=== PATIENT | male | born 1990 | race Hispanic/Latino ===

== ENCOUNTER 2017-03-19 16:44 | Inpatient (IN) | payer BC ==
[2017-03-19 16:50] VITALS: BMI 32.5
[2017-03-19] MEDS ORDERED: Sodium Chloride 0.9% 1,000 ML IV STA ×2 (16:52→18:57)
[2017-03-19 17:07] LABS: ADD MANUAL DIFF? NO
--- NOTE | 2017-03-19 17:08 | ED PDOC ---
Arrival/HPI - General Chief Complaint: Abdominal Pain Time Seen by Provider: 03/19/17 16:50 - History of Present Illness Narrative History of Present Illness (Text): 26 y/o M c no PMHx p/w diffuse muscle cramping of the entire body since yesterday. 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 He reports nausea and vomiting as well. Of note, the temperature outside has been 90 degrees the last 2 days. He denies injury, change in urination, fever, confusion. Past Medical History - Psychiatric Hx Substance Use: No Family/Social History Family/Social History: No Known Family HX Smoking Status: Never Smoked Hx Alcohol Use: Yes Hx Substance Use: No Allergies/Home Meds Allergies/Adverse Reactions: Allergies No Known Allergies Allergy (Verified 03/19/17 16:49) Home Medications: Home Meds Medication Instructions Recorded Confirmed No Known Home Med 03/19/17 03/19/17 Review of Systems - Physician Review All systems were reviewed & negative as marked: Yes - Review of Systems Constitutional: absent: Fevers Respiratory: absent: SOB Gastrointestinal: Vomiting Physical Exam - Physical Exam Narrative Physical Exam (Text): Constitutional: No acute distress. Head: Normocephalic. Atraumatic. Eyes: PERRL. ENT: Dry mucous membranes. Neck: Supple. Cardiovascular: Regular rate. Chest: No tenderness. Respiratory: Clear to auscultation bilaterally. GI: Soft. Nontender. Nondistended. Back: No CVA tenderness. Musculoskeletal: No tenderness or swelling of extremities. Skin: No rash. Diaphoretic. Neurologic: Alert, no focal deficit. Vital Signs Temp Pulse Resp BP Pulse Ox 03/19/17 21:10 97.5 F L 93 H 20 133/80 98 03/19/17 18:30 95 H 18 125/72 99 03/19/17 16:50 97.5 F L 102 H 20 127/59 L 98 Medical Decision Making ED Course and Treatment: Triage temperature less than 98 degrees. Will begin IVF hydration, check LFTs, renal function, UA, CXR. 03/19/17 17:12 EKG Sinus tachycardia 117, no ST elevations, normal axis. BP noted to by normotensive with wide pulse pressure. CXR no consolidation. Labs shows multiple significant abnormalities including CK 800 and worsening renal function and acidosis. Requires IVF, bicarb, close monitoring until resolution. Dr. Buenrostro accepts for admission. - Lab Interpretations Lab Results: 03/19/17 16:58 03/19/17 16:58 Lab Results 03/19/17 18:42: pO2 210 H, VBG pH 7.37, VBG pCO2 40.0, VBG HCO3 23.1, VBG Total CO2 24.3, VBG O2 Sat (Calc) 100.4 H, VBG Base Excess -2.0 L, VBG Potassium 3.9, Glucose 132 H, Lactate 1.1, FiO2 21.0, Sodium 135.0, Chloride 105.0, Venous Blood Potassium 3.9 03/19/17 18:15: Urine Color Yellow, Urine Appearance Sl cloudy, Urine pH 5.5, Ur Specific [place] >= 1.030, Urine Protein 100 H, Urine Glucose (UA) Negative, Urine Ketones Trace H, Urine Blood Trace-intact H, Urine Nitrate Negative, Urine Bilirubin Negative, Urine Urobilinogen 0.2, Ur Leukocyte Esterase Negative , Urine RBC 2 - 5, Urine WBC 5 - 10, Ur Epithelial Cells 1 - 3, Urine Bacteria Mod 03/19/17 16:58: Sodium 139, Potassium 4.1, Chloride 93 L, Carbon Dioxide 20 L, Anion Gap 30 H, BUN 40 H, Creatinine 2.0 H, Est GFR ( Amer) 50, Est GFR ( Non-Af Amer) 41, Random Glucose 129 H, Calcium 11.5 H, Phosphorus 6.9 H, Magnesium 2.5 H, Total Bilirubin 2.6 H, AST 71 H, ALT 59 H, Alkaline Phosphatase 89, Total Creatine Kinase 819 H, CK-MB (CK-2) 5.3 H, CK-MB (CK-2) % 0.6 L, Total Protein 11.2 H, Albumin 6.0 H, Globulin 5.2, Albumin/Globulin Ratio 0.0 L, Lipase 114 03/19/17 16:58: WBC 17.8 H, RBC 6.26 H, Hgb 18.9 H*, Hct 51.0, MCV 81.5, MCH 30.2, MCHC 37.1 H, RDW 12.0, Plt Count 351, MPV 11.0, Gran % 72.6 H, Lymph % ( Auto) 19.0 L, Holmes % (Auto) 7.5 H, Eos % (Auto) 0.6 L, Baso % (Auto) 0.3, Gran # 12.96 H, Lymph # 3.4, Holmes # 1.3 H, Eos # 0.1, Baso # 0.06 - RAD Interpretation Radiology Orders: 03/19/17 16:59 CHEST PORTABLE [RAD] Stat - Medication Orders Current Medication Orders: Calcium Acetate (Phoslo) 667 mg PO WM [facility] Last Admin: 03/20/17 09:10 Dose: 667 mg Heparin Sodium (Porcine) (Heparin) 5,000 units SC Q8H [facility]MAN[facility] PRN Reason: Protocol Last Admin: 03/20/17 06:20 Dose: 5,000 units Sodium Bicarbonate 50 meq/ (Sodium Chloride) 1,050 mls @ 150 mls/hr IV .Q7H [facility] Stop: 03/22/17 20:46 Last Admin: 03/20/17 06:20 Dose: 150 mls/hr Cefepime HCl 0.5 gm/ Sodium (Chloride) 100 mls @ 100 mls/hr IVPB Q12H [facility] PRN Reason: Protocol Last Admin: 03/20/17 10:00 Dose: 100 mls/hr Ondansetron HCl (Zofran Inj) 4 mg IVP Q4H PRN PRN Reason: Nausea/Vomiting Pantoprazole Sodium (Protonix Ec Tab) 40 mg PO 0630 [facility] Last Admin: 03/20/17 06:20 Dose: 40 mg Discontinued Medications Sodium Chloride (Sodium Chloride 0.9%) 1,000 mls @ 999 mls/hr IV .Q1H1M STA Stop: 03/19/17 17:52 Last Admin: 03/19/17 17:06 Dose: 999 mls/hr Sodium Chloride (Sodium Chloride 0.9%) 1,000 mls @ 999 mls/hr IV .Q1H1M STA Stop: 03/19/17 19:57 Last Admin: 03/19/17 19:00 Dose: 999 mls/hr Sodium Bicarbonate 50 meq/ (Sodium Chloride) 1,050 mls @ 150 mls/hr IV .Q7H [facility] Magnesium Citrate (Citrate Of Mag) 300 ml PO ONCE ONE Stop: 03/20/17 09:05 Last Admin: 03/20/17 10:03 Dose: 300 ml Ondansetron HCl (Zofran Inj) 8 mg IVP STAT ST[facility] Stop: 03/19/17 16:53 Last Admin: 03/19/17 17:06 Dose: 8 mg Pantoprazole Sodium (Protonix Ec Tab) 40 mg PO ONCE ONE Stop: 03/19/17 20:00 Last Admin: 03/19/17 23:25 Dose: 40 mg Disposition/Present on Arrival - Present on Arrival Any Indicators Present on Arrival: No History of DVT/PE: No History of Uncontrolled Diabetes: No Urinary Catheter: No History of Decub. Ulcer: No History Surgical Site Infection Following: None - Disposition Have Diagnosis and Disposition been Completed?: Yes Diagnosis: Dehydration Disposition: HOSPITALIZED Disposition Time: 18:55 Patient Plan: Admission Condition: GUARDED
[2017-03-19 17:20] LABS: BASO # 0.06 K/mm3 (0.0-2.0); BASO % 0.3 % (0.0-3.0); EOS # 0.1 (0.0-0.7); EOS % 0.6 % (1.5-5.0); GRAN # 12.96 (1.4-6.5); GRAN % 72.6 % (50.0-68.0); LYMPH # 3.4 (1.2-3.4); MEAN CELL VOLUME 81.5 fL (80.0-105.0); MEAN CORPUSCULAR HEMOGLOBIN 30.2 pg (25.0-35.0); MEAN CORPUSCULAR HGB CONC 37.1 g/dl (31.0-37.0); MONO # 1.3 (0.1-0.6); MONO % 7.5 % (1.0-6.0); PLATELET COUNT 351 10^3/uL (120.0-450.0); WHITE BLOOD COUNT 17.8 10^3/ul (4.5-11.0)
[2017-03-19 17:34] LABS: BILIRUBIN,TOTAL 2.6 mg/dL (0.2-1.3); CALCIUM 11.5 mg/dL (8.4-10.5); MAGNESIUM 2.5 mg/dL (1.7-2.2); PHOSPHOROUS 6.9 mg/dL (2.5-4.5); POTASSIUM 4.1 mmol/L (3.6-5.0)
[2017-03-19 18:38] LABS: PH,URINE 5.5 (4.7-8.0); URINE BILIRUBIN NEGATIVE (NEGATIVE); URINE BLOOD TRACE-INTACT (NEGATIVE); URINE GLUCOSE (UA) NEGATIVE (NEGATIVE); URINE KETONE TRACE mg/dL (NEGATIVE); URINE LEUKOCYTE ESTERASE NEGATIVE Leu/uL (NEGATIVE); URINE PROTEIN 100 mg/dL (<30 mg/dL); URINE UROBILINOGEN 0.2 E.U./dL (<1 E.U./dL)
[2017-03-19 18:44] LABS: URINE APPEARANCE SL CLOUDY (CLEAR); URINE COLOR YELLOW (YELLOW)
[2017-03-19 18:51] LABS: VENOUS BLOOD PH 7.37 (7.32-7.43)
[2017-03-19 18:53] LABS: TOTAL PROTEIN 11.2 g/dL (5.8-8.3)
[2017-03-19] MEDS ORDERED: Sodium Bicarbonate (8.4%) 50 Meq Syringe IVP ONE (18:57)
[2017-03-19 18:59] LABS: URINE BACTERIA MOD (NEG)
[2017-03-19] MEDS ORDERED: Pantoprazole 20 mg EC Tab PO ONE (19:59)
--- NOTE | 2017-03-19 21:50 | CARD ---
APPROVED REPORT EKG Measurement Heart [id number] <Conclusion> Sinus tachycardia Right atrial enlargement Minimal voltage criteria for LVH, may be normal variant Borderline ECG
[2017-03-19 23:11] LABS: MAGNESIUM 2.3 mg/dL (1.7-2.2); URIC ACID 8.9 mg/dL (3.5-8.5)
[2017-03-19 23:14] LABS: INR 1.06 (0.93-1.08); PARTIAL THROMBOPLASTIN TIME 26.4 Seconds (23.7-30.8)
[2017-03-19] MEDS: Cefepime 0.5 GM in Sodium Chloride 0.9% 100 ML IVPB SCH (23:24)
[2017-03-19 23:27] LABS: TROPONIN I < 0.01 ng/mL
[2017-03-19 23:29] LABS: FREE T4 1.08 ng/dL (0.78-2.19); T4 8.9 ug/dL (5.5-11.0)
[2017-03-19 23:42] LABS: THYROID STIMULATING HORMONE 1.1 mIU/mL (0.46-4.68)
[2017-03-20] MEDS: Pantoprazole 40 mg EC Tab PO SCH (06:20)
[2017-03-20 07:52] LABS: ADD MANUAL DIFF? NO
[2017-03-20 07:58] LABS: BASO # 0.02 K/mm3 (0.0-2.0); BASO % 0.2 % (0.0-3.0); EOS # 0.1 (0.0-0.7); EOS % 1.5 % (1.5-5.0); GRAN # 5.77 (1.4-6.5); GRAN % 67.4 % (50.0-68.0); HEMATOCRIT 40.5 % (42.0-52.0); MEAN CELL VOLUME 83.5 fL (80.0-105.0); MEAN CORPUSCULAR HEMOGLOBIN 28.9 pg (25.0-35.0); MEAN CORPUSCULAR HGB CONC 34.6 g/dl (31.0-37.0); MEAN PLATELET VOLUME 10.7 fl (7.0-11.0); MONO # 0.7 (0.1-0.6); MONO % 7.9 % (1.0-6.0); PLATELET COUNT 249 10^3/uL (120.0-450.0); RED CELL DISTRIBUTION WIDTH 12.5 % (11.5-14.5); WHITE BLOOD COUNT 8.6 10^3/ul (4.5-11.0)
[2017-03-20 08:29] LABS: ALB/GLOB RATIO 1.4 (1.1-1.8); ALKALINE PHOSPHATASE 54 U/L (38-133); ALT/SGPT 51 U/L (7-56); AST/SGOT 52 U/L (15-59); BILIRUBIN,DIRECT 0.5 mg/dL (0.0-0.4); BILIRUBIN,TOTAL 2.4 mg/dL (0.2-1.3); BLOOD UREA NITROGEN 28 mg/dL (7-21); CARBON DIOXIDE 28 mmol/L (21-33); CHLORIDE 101 mmol/L (98-107); GFR AFRICAN-AMERICAN > 60; GLUCOSE,RANDOM 96 mg/dL (70-110); MAGNESIUM 2.3 mg/dL (1.7-2.2); PHOSPHOROUS 2.9 mg/dL (2.5-4.5); POTASSIUM 4.5 mmol/L (3.6-5.0); SODIUM 138 mmol/L (132-148); TOTAL PROTEIN 7.4 g/dL (5.8-8.3)
[2017-03-20 08:30] LABS: TROPONIN I < 0.01 ng/mL
[2017-03-20] MEDS ORDERED: Magnesium Citrate Oral SOL (300 ml) PO ONE (09:04)
[2017-03-20] MEDS: Cefepime 0.5 GM in Sodium Chloride 0.9% 100 ML IVPB SCH ×2 (10:00→21:34)
--- NOTE | 2017-03-20 10:04 | CT ---
PROCEDURE: CT Abdomen and Pelvis without intravenous contrast HISTORY: rhabdo COMPARISON: None. TECHNIQUE: Without contrast.. Contrast Dose: 0 Radiation dose: Total exam DLP = 906.98 mGy-cm. This CT exam was performed using one or more of the following dose reduction techniques: Automated exposure control, adjustment of the mA and/or kV according to patient size, and/or use of iterative reconstruction technique. FINDINGS: LOWER THORAX: Unremarkable. LIVER: Unremarkable. No gross lesion or ductal dilatation. GALLBLADDER AND BILE DUCTS: Unremarkable. PANCREAS: Unremarkable. No gross lesion or ductal dilatation. SPLEEN: Unremarkable. ADRENALS: Unremarkable. No mass. KIDNEYS AND URETERS: Unremarkable. No hydronephrosis. No solid mass. VASCULATURE: Unremarkable. No aortic aneurysm. BOWEL: Unremarkable. No obstruction. No gross mural thickening. APPENDIX: Unremarkable. Normal appendix. PERITONEUM: Unremarkable. No free fluid. No free air. LYMPH NODES: Unremarkable. No enlarged lymph nodes. BLADDER: Unremarkable. REPRODUCTIVE: Normal prostate BONES: No acute fracture. OTHER FINDINGS: None. IMPRESSION: Unremarkable non contrast enhanced CT of the abdomen and pelvis. No acute abnormality. Preliminary interpretation of this examination was reported by [facility] at 9:50 p.m. on 03/19/2017. There is concurrence of this report with the preliminary interpretation.
--- NOTE | 2017-03-20 12:39 | RAD ---
HISTORY: diffuse cramping COMPARISON: No prior. FINDINGS: LUNGS: No active pulmonary disease. PLEURA: No significant pleural effusion identified, no pneumothorax apparent. CARDIOVASCULAR: Normal. OSSEOUS STRUCTURES: No significant abnormalities. VISUALIZED UPPER ABDOMEN: Normal. OTHER FINDINGS: None. IMPRESSION: No active disease.
--- NOTE | 2017-03-20 13:17 | US ---
HISTORY: transaminitis COMPARISON: None. TECHNIQUE: Sonographic evaluation of the abdomen. FINDINGS: LIVER: Measures 16.2 cm. Mild diffusely increased echogenicity of the liver parenchyma. Consistent with fatty infiltration. No mass. No biliary ductal dilatation. Smooth contour. GALLBLADDER: Unremarkable. No gallstones. COMMON BILE DUCT: Measures 4 mm. No stones. No dilatation. PANCREAS: Unremarkable as visualized. No mass. No ductal dilatation. RIGHT KIDNEY: Measures 10.6cm. Normal echogenicity. No calculus, mass, or hydronephrosis. LEFT KIDNEY: Measures 10.9cm. Normal echogenicity. No calculus, mass, or hydronephrosis. SPLEEN: Normal in size and contour. No mass. AORTA: No aneurysmal dilatation. IVC: Unremarkable. OTHER FINDINGS: None. IMPRESSION: Mild fatty infiltration of the liver. Otherwise unremarkable examination.
--- NOTE | 2017-03-20 13:51 | CP.PCM.CON ---
History of Present Illness - History of Present Illness History of Present Illness: Initial Nephrology Consultation: Assessment: Acute Kidney Injury likely due to severe dehydration: RESOLVED with IVF hypercalcemia, hyperphosphatemia, hypermagnesemia : RESOLVED mild rhabdomyolysis Plan renal function normal with hydration continue with fluid supplementation as normal saline while he is here. no further renal work up indicated pt advised to stop smoking advised to stay hydrated well d/c calc acetate. d/c bicarb drmat Thanks for allowing me to participate in care of your patient. 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 found to be dehydrated and Have J CARLOS. feels better now Denies chest pain, palpitation, shortness of breath, leg swelling Denies blood or bubbles in urine Denies OTC/herbal meds. took few Alleve No recent iodinated contrast exposure. No obvious episodes of low BP. ROS: Constitutional Symptoms: Denies fever. No chills. No Recent Weight Changes Eyes: denies change in vision, denies watery eyes, denies double vision Ears/Nose/Mouth/Throat: Denies Abnormal Taste. No Bad breath or Bad Taste. Cardiovascular: No chest pain. There is no shortness of breath. No palpitations. Pulmonary: No shortness of breath or cough. Gastrointestinal: denies abdominal pain No nausea. had vomiting. Denies change in bowel habits. Denies Bleeding Genitourinary: No Change in force of strain when urinating. No increase in urinary frequency. No pain while urinating. Denies blood in urine. Neurological: Denies headaches. No dizziness. Denies loss of balance. Denies weakness, denies tingling/numbness Dermatological: No Rash or Bruising or ulcers. Psychiatric: Denies Anxiety. No depression. Denies hallucinations. Rheumatological: No joint pain. Denies Joint swelling. had muscle cramps Endocrine: Denies over tiredness. Denies Fatigue and Heat/Cold Intolerance. Physical Examination: General Appearance: Comfortable, in no acute respiratory distress, co-operative . Vitals reviewed and noted as below Head; Atraumatic, normocephalic ENT: no ulcers no thrush. Tongue is midline. Oropharynx: no rash or ulcers. EYES: Pupils are equal, round and reactive to light accommodation. Eye muscles and extraocular movement intact. Sclera is anicteric. Neck; supple no lymphadenopathy, no thyromegaly or bruit Lungs: Normal respiratory rate/effort. Breath sounds bilateral equal and clear Heart: Normal rate. s1s2 normal. No rub or gallop. Extremities: no edema. No varicose veins Neurological: Patient is alert, awake and oriented to person, place and time. No focal deficit. Strength bilateral appropriate and equal Skin: Warm and dry. Normal turgor. No rash. Palpitation: Normal elasticity for age Abdomen: Abdomen is soft. Bowel sounds +. There is no abdominal tenderness, no guarding/rigidity or organomegaly Psych: normal insight and normal affect/mood MSK: no joint tenderness or swelling. Digits and nails normal, no deformity : kidney or bladder not palpable Labs/imaging reviewed. Past medical history, past surgical history, family history, social history, allergy reviewed and noted as below imaging normal kidneys Past Patient History - Past Social History Smoking Status: Never Smoked - CARDIAC Hx Cardiac Disorders: No - PULMONARY Hx Respiratory Disorders: No - NEUROLOGICAL Hx Neurological Disorder: No - HEENT Hx HEENT Problems: No - RENAL Hx Chronic Kidney Disease: No - ENDOCRINE/METABOLIC Hx Endocrine Disorders: No - HEMATOLOGICAL/ONCOLOGICAL Hx Blood Disorders: No - INTEGUMENTARY Hx Dermatological Problems: No - MUSCULOSKELETAL/RHEUMATOLOGICAL Hx Falls: No - GASTROINTESTINAL Hx Gastrointestinal Disorders: No - GENITOURINARY/GYNECOLOGICAL Hx Genitourinary Disorders: No - PSYCHIATRIC Hx Substance Use: No - SURGICAL HISTORY Hx Surgeries: No Meds Allergies/Adverse Reactions: Allergies Allergy/AdvReac Type Severity Reaction Status Date / Time No Known Allergies Allergy Verified 03/19/17 16:49 - Medications Medications: Current Medications Calcium Acetate (Phoslo) 667 mg PO WM [facility] Last Admin: 03/20/17 12:16 Dose: 667 mg Heparin Sodium (Porcine) (Heparin) 5,000 units SC Q8H [facility] PRN Reason: Protocol Last Admin: 03/20/17 12:16 Dose: 5,000 units Sodium Bicarbonate 50 meq/ (Sodium Chloride) 1,050 mls @ 150 mls/hr IV .Q7H [facility] Stop: 03/22/17 20:46 Last Admin: 03/20/17 06:20 Dose: 150 mls/hr Cefepime HCl 0.5 gm/ Sodium (Chloride) 100 mls @ 100 mls/hr IVPB Q12H [facility] PRN Reason: Protocol Last Admin: 03/20/17 10:00 Dose: 100 mls/hr Ondansetron HCl (Zofran Inj) 4 mg IVP Q4H PRN PRN Reason: Nausea/Vomiting Pantoprazole Sodium (Protonix Ec Tab) 40 mg PO 0630 [facility] Last Admin: 03/20/17 06:20 Dose: 40 mg Results - Vital Signs Recent Vital Signs: Last Vital Signs Temp 98.7 F 03/20/17 05:58 Pulse 84 03/20/17 10:00 Resp 20 03/20/17 05:58 BP 129/67 03/20/17 05:58 Pulse Ox 98 03/20/17 05:58 - Labs Result Diagrams: 03/20/17 07:49 03/20/17 07:49 Labs: Laboratory Results - last 24 hr 03/19/17 03/19/17 03/19/17 19:35 22:30 22:30 WBC RBC Hgb Hct MCV MCH MCHC RDW Plt Count MPV Gran % Lymph % (Auto) [place] % (Auto) Eos % (Auto) Baso % (Auto) Gran # Lymph # [place] # Eos # Baso # PT 11.4 INR 1.06 APTT 26.4 Sodium Potassium Chloride Carbon Dioxide Anion Gap BUN Creatinine Est GFR ( Amer) Est GFR (Non-Af Amer) Random Glucose Lactic Acid Uric Acid 8.9 H Calcium Phosphorus Magnesium 2.3 H Total Bilirubin Direct Bilirubin AST ALT Alkaline Phosphatase Total Creatine Kinase CK-MB (CK-2) CK-MB (CK-2) % Troponin I < 0.01 Total Protein Albumin Globulin Albumin/Globulin Ratio Free T4 Thyroxine (T4) TSH 3rd Generation Urine Opiates Screen Negative Urine Methadone Screen Negative Ur Barbiturates Screen Negative Ur Phencyclidine Scrn Negative Ur Amphetamines Screen Negative U Benzodiazepines Scrn Negative U Oth Cocaine Metabols Negative U Cannabinoids Screen Positive H 03/19/17 03/19/17 03/20/17 22:30 22:30 07:49 WBC 8.6 D RBC 4.85 Hgb 14.0 Hct 40.5 L MCV 83.5 MCH 28.9 MCHC 34.6 RDW 12.5 Plt Count 249 MPV 10.7 Gran % 67.4 Lymph % (Auto) 23.0 [place] % (Auto) 7.9 H Eos % (Auto) 1.5 Baso % (Auto) 0.2 Gran # 5.77 Lymph # 2.0 [place] # 0.7 H Eos # 0.1 Baso # 0.02 PT INR APTT Sodium Potassium Chloride Carbon Dioxide Anion Gap BUN Creatinine Est GFR ( Amer) Est GFR (Non-Af Amer) Random Glucose Lactic Acid 1.1 Uric Acid Calcium Phosphorus Magnesium Total Bilirubin Direct Bilirubin AST ALT Alkaline Phosphatase Total Creatine Kinase CK-MB (CK-2) CK-MB (CK-2) % Troponin I Total Protein Albumin Globulin Albumin/Globulin Ratio Free T4 1.08 Thyroxine (T4) 8.9 TSH 3rd Generation 1.10 Urine Opiates Screen Urine Methadone Screen Ur Barbiturates Screen Ur Phencyclidine Scrn Ur Amphetamines Screen U Benzodiazepines Scrn U Oth Cocaine Metabols U Cannabinoids Screen 03/20/17 07:49 WBC RBC Hgb Hct MCV MCH MCHC RDW Plt Count MPV Gran % Lymph % (Auto) [place] % (Auto) Eos % (Auto) Baso % (Auto) Gran # Lymph # [place] # Eos # Baso # PT INR APTT Sodium 138 Potassium 4.5 Chloride 101 Carbon Dioxide 28 Anion Gap 14 BUN 28 H Creatinine 0.8 Est GFR ( Amer) > 60 Est GFR (Non-Af Amer) > 60 Random Glucose 96 Lactic Acid Uric Acid Calcium 9.0 Phosphorus 2.9 Magnesium 2.3 H Total Bilirubin 2.4 H Direct Bilirubin 0.5 H AST 52 ALT 51 Alkaline Phosphatase 54 Total Creatine Kinase 859 H CK-MB (CK-2) 4.2 H CK-MB (CK-2) % Cancelled Troponin I < 0.01 Total Protein 7.4 Albumin 4.3 Globulin 3.0 Albumin/Globulin Ratio 1.4 Free T4 Thyroxine (T4) TSH 3rd Generation Urine Opiates Screen Urine Methadone Screen Ur Barbiturates Screen Ur Phencyclidine Scrn Ur Amphetamines Screen U Benzodiazepines Scrn U Oth Cocaine Metabols U Cannabinoids Screen
[2017-03-20] MEDS: Sodium Chloride 0.9% 2,000 ML IV SCH (14:00)
[2017-03-20 14:24] LABS: PH,URINE 6.5 (4.7-8.0); URINE BILIRUBIN NEGATIVE (NEGATIVE); URINE BLOOD NEGATIVE (NEGATIVE); URINE GLUCOSE (UA) NEGATIVE (NEGATIVE); URINE KETONE NEGATIVE (NEGATIVE); URINE LEUKOCYTE ESTERASE NEGATIVE Leu/uL (NEGATIVE); URINE PROTEIN NEGATIVE mg/dL (<30 mg/dL); URINE UROBILINOGEN 0.2 E.U./dL (<1 E.U./dL)
[2017-03-20 14:26] LABS: URINE APPEARANCE CLEAR (CLEAR); URINE COLOR YELLOW (YELLOW)
--- NOTE | 2017-03-20 17:35 | PN ---
DATE: 03/20/2017 The patient is seen in ultrasound while the patient is undergoing abdominal ultrasound. The patient states that he is feeling relatively better, but not back to baseline. PHYSICAL EXAMINATION: VITAL SIGNS: T-max is 98.7, heart rate 84, ; respirations 20, blood pressure 129/67, 133/80; O2 sat 98%. HEAD: Normocephalic, atraumatic. HEENT: Shows pink conjunctivae. Dry oral mucosa. No neck rigidity. SKIN: Shows multiple skin tattoos. NECK: No neck rigidity. CHEST: Kyphosis. LUNGS: Shows no rales, crackles, or wheezing. CARDIOVASCULAR: Shows S1, S2, regular rhythm. ABDOMEN: Soft, positive bowel sounds. No guarding noted. No rebound tenderness. No costovertebral angle tenderness. GENITALIA: Male. RECTAL: Deferred. EXTREMITIES: Shows no pitting edema, no calf tenderness, no Homans sign. No muscle tenderness noted today. GAIT: Not tested. VASCULAR: Palpable pulses. MUSCULOSKELETAL: Shows a body mass index of 32. NEUROLOGIC: Without any gross deficit. PSYCHIATRIC: Negative. DIAGNOSTICS: From 03/28: WBC 8.6, hemoglobin and hematocrit 14 and 40.5; platelet 249. Sodium 138, potassium 4.5, chloride is 101, CO2 is up to 28, anion gap 14, BUN down to 28 from 40, creatinine down to 0.8 from 2.0, GFR greater than 60, glucose 96. Lactic acid 1.1, calcium is down to 9.0. Phosphorus is down to 2.9 from 6.9. Magnesium is still 2.3, total bilirubin is down to 2.4 from 2.6, direct bilirubin 0.6. CPK is still elevated at 859. Troponin is negative. TSH, T4 and free T4 are negative. Repeat urine pH is 6.5 from 5.5; specific gravity is 1.015, protein negative. The rest of the urinalysis is negative. The patient's CAT scan results are reviewed. The patient had an abdominal ultrasound done, which shows a fatty liver. IMPRESSION AND PLAN: 1. Acute severely symptomatic rhabdomyolysis with symptoms of nausea and vomiting. 2. Acute renal failure and acute kidney injury secondary to severe dehydration. 3. Hypercalcemia, hyperphosphatemia, hypermagnesemia. 4. Tachycardia. 5. Questionable systemic inflammatory response syndrome with tachycardia and leukocytosis with granulocytosis. 6. Erythrocytosis with hemoconcentration secondary to dehydration. 7. Increased anion gap metabolic acidosis. 8. Acute kidney injury, acute renal failure. 9. Hyperuricemia. 10. Hypercalcemia. 11. Hyperbilirubinemia. 12. Rhabdomyolysis. 13. Transient proteinuria, microscopic hematuria, ketonuria and bacteriuria. 14. Fecal retention, colonic fecal stasis and constipation. 15. Hepatic steatosis and fatty infiltration of the liver. 16. Sinus tachycardia. 1. Acute severe symptomatic rhabdomyolysis with diffuse muscular cramping and nausea. 2. Severe dehydration. 3. Tachycardia. 4. Questionable systemic inflammatory response syndrome with leukocytosis, granulocytosis, tachycardia. 5. Erythrocytosis, probably hemoconcentration 6. Acute renal failure, acute kidney injury. 7. Increased anion gap metabolic acidosis. 8. Hyperglycemia. 9. Hyperuricemia. 10. Hypermagnesemia. 11. Hyperphosphatemia. 12. Hypercalcemia. 13. Hyperbilirubinemia. 14. Transaminitis. 15. Proteinuria, ketonuria, hematuria and pyuria. 16. History of marijuana use with urine drug screen positive for cannabinoids. 17. Tachycardia. 18. Most likely systemic inflammatory response syndrome. 19. Colonic fecal retention with constipation. 20. Severely symptomatic acute rhabdomyolysis with elevated CPK and multiple electrolyte abnormalities with acute renal failure and acute kidney injury. 21. Sinus tachycardia. PLAN: At this time, the patient is seen by nephrology. The patient has been ordered serial labs. The patient has been awaiting HIV; myoglobin, PTH and CBC has been ordered. Blood and urine cultures ordered, awaiting GI consultation. CURRENT MEDICATIONS: The patient has been given a dose of magnesium citrate for constipation. The patient's IV fluid changed normal saline at 100 mL an hour without bicarbonate. The patient is on heparin 5000 subQ q.8, cefepime 500 IV q.12, Protonix 40 mg daily, Zofran 4 IV q.4. The patient has been ordered out of bed ad ambar. The patient has been updated about his condition, diagnosis, treatment plan, management plan at length and all questions and concerns answered. The patient' s further management will depend upon the patient's clinical condition, hemodynamic status, and as per patient's response to therapeutic intervention, as per recommendation by all physicians involved in the care of the patient. Dictated and electronically signed, not read. John Paul Buenrostro MD cc: [id number] TT: 03/20/2017 17:35:11 Confirmation # [id number] Dictation # [id number] brandon RUSSELL
--- NOTE | 2017-03-20 18:36 | CON ---
DATE: 03/20/2017 REQUESTING PHYSICIAN: Dr. John Paul Buenrostro. REASON FOR CONSULTATION: I have been asked to see this 26-year-old male with no significant medical history, no history of liver disease who was admitted to the hospital with diffuse muscle aches for 2 4 hours associated with nausea and vomiting. He denied any abdominal pain. 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 In the Emergency Room, he was noted to have elevated hemoglobin consistent with dehyd ration as well as elevated AST, ALT and total bilirubin. He denies any alcohol use. He does have mu ltiple tattoos over his extremities. Again, he denies any prior history of liver disease. CT scan o f the abdomen and pelvis was negative. Ultrasound of the abdomen shows some what appears to be some biliary sludge. Again, he denies any abdominal pain. PAST MEDICAL HISTORY: Unremarkable. PAST SURGICAL HISTORY: Unremarkable. SOCIAL HISTORY: He denies cigarette smoking. He consumes alcohol socially, but denies excessive alc ohol use. He has multiple tattoos on his extremities. FAMILY HISTORY: Noncontributory. REVIEW OF SYSTEMS: A 14-point review of systems is notable for diffuse muscle cramping and nausea an d vomiting. PHYSICAL EXAMINATION: GENERAL: Well-developed male lying in bed in no acute distress. VITAL SIGNS: Reveal temperature of 98.7, blood pressure 129/67, heart rate is 70. His BMI is 32.7. HEENT: Reveal sclerae to be white, conjunctivae pink. Oral mucosa is moist. NECK: Supple. CHEST: Reveals lungs to be clear. HEART: Reveals regular rate and rhythm. ABDOMEN: Obese, soft, nontender. There is no hepatomegaly. EXTREMITIES: Show no edema. LABORATORY DATA: Reveal on admission to the hospital, white blood cell count 17.8, hemoglobin 18.9. Today, his hemoglobin is down to 14 with a white blood cell count of 8.6. Chemistries on admission to the hospital reveal BUN 40, creatinine 2, carbon dioxide 20, calcium of 11.5, phosphorus 6.9, tota l bilirubin 2.6, AST 71, ALT 59, alkaline phosphatase of 89. CK of 819. His BUN this morning is 28, creatinine 0.8, total bilirubin is 2.4, direct bilirubin 0.5. AST, ALT, alk phos were all normal. His CK this morning is 859. 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 His renal function has improved with IV hydration. His hemoglobin has decreased appropriately with IV hy dration. Clinically, he appears rehydrated. The elevated liver enzymes are secondary to rhabdomyoly sis. He does have hyperbilirubinemia, which is mostly indirect bilirubin and I believe this is secon jaclyn to Gilbert's syndrome. He has no prior history of liver disease. RECOMMENDATIONS: 1. Check hepatitis serology. 2. Continue current treatment. The patient is stable from a GI standpoint at this time. Villa Buckley MD cc: [phone] TT: 03/20/2017 18:35:04 Confirmation # [id number] Dictation # [id number] mn
--- NOTE | 2017-03-20 20:42 | HP ---
The patient is a 26-year-old male who presented to the Emergency Room with complaints of 2-3 day hist ory of increasing and worsening bilateral lower extremity cramps, upper body cramps, lower body cramp s and upper extremity cramps. The patient also stated about some nausea during these/with these symp toms. The patient stated that the symptoms started about 2 days ago. 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 REVIEW OF SYSTEMS: The patient's 13-system review of symptoms was positive for diffuse cramping of t he lower extremity, thighs, upper body and trunk, and lower body and upper extremity with associated nausea. CODE STATUS: Full code. LIVING WILL AND ADVANCED DIRECTIVE: None. ALLERGIES: None. Height is 5 feet 9 inches, weight is 221, BMI is 33. HOME MEDICATIONS: None. SOCIAL HISTORY: Positive for marijuana, positive for social alcohol use. Denies smoking cigarettes. The patient denies any communicable transmissible disease. FAMILY HISTORY: The patient states that both parents are healthy and no medical problems. The patie nt has one sister with no medical problems. 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 PAST MEDICAL AND SURGICAL HISTORY: None which patient denies. The patient's procedure history is po sitive for multiple skin tattoos on the entire body including the upper extremity, trunk and the lowe r extremity. PAST SURGICAL HISTORY: Negative. PHYSICAL EXAMINATION: VITAL SIGNS: T-max 97.5, heart rate 102-95. Blood pressure 127/59, 125/72; respiration is 20-18, T- max is 98-99%. GENERAL: The patient is seen lying in the bed in stretcher. HEAD: Normocephalic, atraumatic. HEENT: Shows dry oral mucosa. Hawthorne conjunctivae. Dry oral mucosa. NECK: No neck rigidity. CHEST: Symmetrical. LUNGS: Show no rales, crackles, or wheezing. CARDIOVASCULAR: S1, S2, regular rhythm. ABDOMEN: Soft, positive bowel sounds. Mild voluntary guarding noted. No rebound tenderness, slight costovertebral tenderness noted. Positive rib cage tenderness. Positive upper extremity muscle ten derness. GENITALIA: Male. RECTAL: Deferred. EXTREMITIES: Mild tenderness noted of the thigh muscles. No calf tenderness noted. No Homans signs . VASCULAR: Palpable pulses. MUSCULOSKELETAL: Shows a body mass index of 33. NEUROLOGIC: Cranial nerves II-XII grossly intact. Neuro examination without any gross deficit. GAIT: Could not be tested. PSYCHIATRIC: Negative for anxiety. Negative for depression. Negative for suicidal or homicidal tiago ation, negative for any psychotic symptoms. DIAGNOSTICS: WBC 17.8, hemoglobin and hematocrit are 18.9 and 51.0, platelet 351. Granulocytes, 73% segs. PT and PTT 11.4 and 26.4. VBG shows normal lactate. PH was normal at 7.37. Sodium 139, pot assium 4.1, chloride 93, CO2 20, anion gap 30. BUN 40, creatinine 2.0, GFR 58, glucose 129. Uric ac id 8.9, magnesium 2.5, calcium 11.5, phosphorus 6.9. AST 71, ALT 59, CPK 819, MB 5.2, total protein 11.2, albumin 6.0. Urinalysis shows pH of 5.5, specific gravity greater than 1.030, protein 100, tra ce ketones, trace blood, moderate bacteria. Urine drug screen was positive for marijuana and cannabi noids. Chest x-ray done in the Emergency Room shows no active disease. The patient had a CT of the abdomen and pelvis which was done in the Emergency Room. The [facility] reading shows diffuse fecal r etention noted in the colon. The patient was seen in the Emergency Room by . The patient was started on IV fluid. The p atient was given an amp of bicarbonate. The patient was given Zofran in the emergency room. The pat ient was started on normal saline; a few liters were given to the patient. The patient was advised t o be admitted. IMPRESSION AND PLAN: 1. Acute severe symptomatic rhabdomyolysis with diffuse muscular cramping and nausea. 2. Severe dehydration. 3. Tachycardia. 4. Questionable systemic inflammatory response syndrome with leukocytosis, granulocytosis, tachycard ia. 5. Erythrocytosis, probably hemoconcentration 6. Acute renal failure, acute kidney injury. 7. Increased anion gap metabolic acidosis. 8. Hyperglycemia. 9. Hyperuricemia. 10. Hypermagnesemia. 11. Hyperphosphatemia. 12. Hypercalcemia. 13. Hyperbilirubinemia. 14. Transaminitis. 15. Proteinuria, ketonuria, hematuria and pyuria. 16. History of marijuana use with urine drug screen positive for cannabinoids. 17. Tachycardia. 18. Most likely systemic inflammatory response syndrome. 19. Colonic fecal retention with constipation. 20. Severely symptomatic acute rhabdomyolysis with elevated CPK and multiple electrolyte abnormaliti es with acute renal failure and acute kidney injury. 21. Sinus tachycardia. PLAN: At this time, patient is to be admitted to . The patient has been order ed by the ER physician to be admitted to telemetry. The patient's serial daily labs have been ordere d. The patient has been ordered out of bed to chair. The patient has been started on IV fluid. The patient has been ordered IV fluid 0.9 normal saline at 150 mL an hour with 1 amp of bicarb in each l iter. The patient has been started on GI and DVT prophylaxis. The patient has been ordered serial d iagnostic workup. Nephrology consultation has been ordered. Gastroenterology consultation has been ordered. The patient has been ordered hemoglobin A1c for elevated hyperglycemia. The patient has be en ordered acute hepatitis panel, HIV, serum and urine myoglobin and PTH have been ordered. Blood an d urine cultures ordered. Consultation with GI, gastroenterology and infectious disease ordered. Pr ocalcitonin level ordered. MEDICATIONS: 1. The patient has been given a bottle of mag citrate for constipation. 2. The patient has been ordered heparin 5000 subQ q. 8. 3. The patient is started on empiric antibiotic cefepime 500 mg IV q. 12. 4. Protonix 40 daily. 5. IV fluid 0.9 normal saline at 150 mL an hour with 1 amp of bicarb. 6. Zofran 4 mg IV q. 4. Regular diet. Out of bed ad ambar. The patient was extensively explained about his need for hospitalization by me and the Emergency Room physician. The patient was told about his condition, diagnosis, treatment plan, and diagnostic and therapeutic intervention was discussed extensively with the patient in layman's language. All questi ons and concerns answered which he acknowledged and understood. The patient's further management will be dependent upon the patient's clinical condition, hemodynamic status, and as per patient response to therapeutic intervention, as per patient's diagnostic test re sults and as per recommendation by all the subspecialties involved in the care of the patient. John Paul Buenrostro MD cc: [id number] TT: 03/20/2017 20:41:48 mn
[2017-03-21] MEDS: Pantoprazole 40 mg EC Tab PO SCH (06:28)
[2017-03-21 06:44] LABS: ADD MANUAL DIFF? NO
[2017-03-21 06:52] LABS: BASO # 0.02 K/mm3 (0.0-2.0); BASO % 0.4 % (0.0-3.0); EOS # 0.1 (0.0-0.7); EOS % 2.8 % (1.5-5.0); GRAN # 2.66 (1.4-6.5); GRAN % 56.4 % (50.0-68.0); HEMATOCRIT 38.2 % (42.0-52.0); LYMPH # 1.4 (1.2-3.4); LYMPH % 30.6 % (22.0-35.0); MEAN CELL VOLUME 84.7 fL (80.0-105.0); MEAN CORPUSCULAR HEMOGLOBIN 29.5 pg (25.0-35.0); MEAN CORPUSCULAR HGB CONC 34.8 g/dl (31.0-37.0); MEAN PLATELET VOLUME 10.4 fl (7.0-11.0); MONO # 0.5 (0.1-0.6); MONO % 9.8 % (1.0-6.0); PLATELET COUNT 194 10^3/uL (120.0-450.0); RED CELL DISTRIBUTION WIDTH 12.4 % (11.5-14.5); WHITE BLOOD COUNT 4.7 10^3/ul (4.5-11.0)
[2017-03-21 06:58] LABS: ALB/GLOB RATIO 1.4 (1.1-1.8); ALKALINE PHOSPHATASE 45 U/L (38-133); ALT/SGPT 53 U/L (7-56); AST/SGOT 71 U/L (15-59); BILIRUBIN,DIRECT 0.3 mg/dL (0.0-0.4); BILIRUBIN,TOTAL 1.5 mg/dL (0.2-1.3); BLOOD UREA NITROGEN 19 mg/dL (7-21); CALCIUM 8.5 mg/dL (8.4-10.5); CARBON DIOXIDE 30 mmol/L (21-33); CHLORIDE 104 mmol/L (98-107); GFR AFRICAN-AMERICAN > 60; GLUCOSE,RANDOM 98 mg/dL (70-110); MAGNESIUM 2.2 mg/dL (1.7-2.2); PHOSPHOROUS 3.1 mg/dL (2.5-4.5); POTASSIUM 4.9 mmol/L (3.6-5.0); SODIUM 137 mmol/L (132-148); TOTAL PROTEIN 6.6 g/dL (5.8-8.3); URIC ACID 5.8 mg/dL (3.5-8.5)
[2017-03-21 07:35] LABS: TROPONIN I < 0.01 ng/mL
[2017-03-21] MEDS: Sodium Chloride 0.9% 2,000 ML IV SCH (08:42)
[2017-03-21] MEDS: Cefepime 0.5 GM in Sodium Chloride 0.9% 100 ML IVPB SCH ×2 (09:52→22:00)
--- NOTE | 2017-03-21 12:55 | CP.PCM.PN ---
Subjective - Date & Time of Evaluation Date of Evaluation: 03/21/17 Time of Evaluation: 12:52 - Subjective Subjective: Follow up Nephrology Consultation: Assessment: Acute Kidney Injury likely due to severe dehydration: RESOLVED with IVF hypercalcemia, hyperphosphatemia, hypermagnesemia : RESOLVED mild rhabdomyolysis Plan renal function normal with hydration fluid supplementation, can be done as oral fluids. no further renal work up indicated pt advised to stop smoking advised to stay hydrated well Thanks for allowing me to participate in care of your patient. Please call if any Qs. Will sign off. he is stable from renal perspective. Dr Ketan Ayala Office: [phone] ROS: feels better wants to go home. no nausea/vomiting/pain abdomen. c/o mild pain rt thigh Physical Examination: General Appearance: Comfortable, in no acute respiratory distress, co-operative . Vitals reviewed and noted as below. stable Lungs: Normal respiratory rate/effort. Breath sounds bilateral equal and clear Heart: Normal rate. s1s2 normal. No rub or gallop. Extremities: no edema. No varicose veins Neurological: Patient is alert, awake and oriented to person, place and time. No focal deficit. Strength bilateral appropriate and equal Skin: Warm and dry. Normal turgor. No rash. Palpitation: Normal elasticity for age Abdomen: Abdomen is soft. Bowel sounds +. There is no abdominal tenderness, no guarding/rigidity or organomegaly : kidney or bladder not palpable Labs/imaging reviewed. Past medical history, past surgical history, family history, social history, allergy reviewed and noted as below imaging normal kidneys repeat UA normal Objective - Vital Signs/Intake and Output Vital Signs (last 24 hours): Temp Pulse Resp BP Pulse Ox 97.3 F L 60 20 110/50 L 98 03/21/17 06:00 03/21/17 10:00 03/21/17 06:00 03/21/17 08:00 03/21/17 06:00 Intake and Output: 03/21/17 03/21/17 06:59 18:59 Intake Total 2160 Output Total 900 Balance 1260 - Medications Medications: Current Medications Diazepam (Valium) 2 mg PO Q8H PRN; Protocol PRN Reason: muscel cramps Last Admin: 03/21/17 08:41 Dose: 2 mg Heparin Sodium (Porcine) (Heparin) 5,000 units SC Q8H ARMANI PRN Reason: Protocol Last Admin: 03/21/17 06:28 Dose: 5,000 units Cefepime HCl 0.5 gm/ Sodium (Chloride) 100 mls @ 100 mls/hr IVPB Q12H ARMANI PRN Reason: Protocol Last Admin: 03/21/17 09:52 Dose: 100 mls/hr Sodium Chloride (Sodium Chloride 0.9%) 2,000 mls @ 100 mls/hr IV .Q20H [facility] Last Admin: 03/21/17 08:42 Dose: 100 mls/hr Ondansetron HCl (Zofran Inj) 4 mg IVP Q4H PRN PRN Reason: Nausea/Vomiting Pantoprazole Sodium (Protonix Ec Tab) 40 mg PO 0630 [facility] Last Admin: 03/21/17 06:28 Dose: 40 mg - Labs Labs: 03/21/17 06:00 03/21/17 06:00 PT 11.4 Seconds (9.9-11.8) 03/19/17 22:30 INR 1.06 (0.93-1.08) 03/19/17 22:30 APTT 26.4 Seconds (23.7-30.8) 03/19/17 22:30
--- NOTE | 2017-03-21 13:24 | US ---
HISTORY: Leg pain and swelling. Evaluate for DVT PHYSICIAN(S): Alcon Acevedo MD. TECHNIQUE: Duplex sonography and color-flow Doppler with graded compression were used to evaluate the deep venous systems of both lower extremities. FINDINGS: The visualized deep venous systems of both lower extremities are sonographically normal and compressible. Normal wave forms and augmentation are seen. There is no sonographic evidence for deep venous thrombosis in the visualized segments of both lower extremities. IMPRESSION: No sonographic evidence for deep venous thrombosis in the visualized segments of both lower extremities.
[2017-03-21] MEDS ORDERED: Sodium Chloride 0.9% 2,000 ML IV SCH (14:07)
[2017-03-21] MEDS ORDERED: HYDROmorphone 0.5 mg/0.5 ml ISec IVP PRN (14:29)
[2017-03-21] MEDS ORDERED: Sodium Chloride 0.9% 1,000 ML IV STA (14:37)
--- NOTE | 2017-03-21 15:47 | PN ---
DATE: 03/21/2017 The patient is seen in room 264, bed 2. The patient is lying in the bed with patient's mother at bedside. Overnight nurse's notes were reviewed. According to the patient's nurses, last night patient's mother persisted and told the nurses that the patient should be discharged because he is feeling better. The patient slept overnight without any adverse event. During the last 24 hours, patient has complained of some leg cramps and thigh cramps for which patient was given Valium with some relief. PHYSICAL EXAMINATION: VITAL SIGNS: T-max 97, heart telemetry normal sinus rhythm in 60s and 70s. Blood pressure 121/69, 110/50, 134/84, 138/66. Respiration is 19, O2 sat 98%. INTAKE AND OUTPUT: Yesterday's 1440 an 360. Today's output 1260 only. HEAD: Normocephalic, atraumatic. HEENT: Shows pink conjunctivae. Dry oral mucosa. NECK: No neck rigidity. CHEST: Symmetrical. SKIN: Shows multiple tattoos of the upper extremity trunk and lower extremity. CARDIOVASCULAR: Shows S1, S2, regular rhythm. LUNGS: Shows no rales, crackles, or wheezing. ABDOMEN: Soft. Positive bowel sounds. No epigastric and right upper quadrant tenderness. No costovertebral angle tenderness. GENITALIA: Male. RECTAL: Deferred. EXTREMITIES: Shows no pitting edema, no calf tenderness, no Homans sign. No muscles tenderness, no clubbing, no cyanosis. VASCULAR: Palpable pulses. Plantars are downward. DTRs are 2+. NEUROLOGIC: Cranial nerves II-XII grossly intact. Ambulation is independent. PSYCHIATRIC: Negative for anxiety, depression. Negative for auditory or visual hallucination. Negative for suicidal or homicidal ideation. DIAGNOSTICS: 03/21: WBC 4.7, hemoglobin and hematocrit 13.3 and 38.2, which is down from 19 and 51; platelets 194, differential is normal. Sodium 137, potassium 4.9, chloride 104, CO2 of 30, anion gap 8, BUN down to 19 from 40, creatinine is down to 0.8 from 2.0. GFR greater than 60. Glucose 98. Uric acid is 5.8 from 8.9. Calcium is down to 8.5 from 11.5. Phosphorus is down to 3.1 from 6.9. Magnesium is corrected to 2.2 from 2.3. Total bili is 1.5. Direct bili is normal. AST is down to 71. CPK has gone up to 1500 almost from 859. Troponin is negative. Procalcitonin level is negative. Repeat urine pH of 6.5 from 5.5. Blood and urine cultures are negative. The patient underwent now venous Doppler of the lower extremity for leg cramping, which was negative for DVT. IMPRESSION AND PLAN: 1. Slow resolving versus questionable refractory acute severe symptomatic rhabdomyolysis. 2. Acute renal failure, acute kidney injury. 3. Severe dehydration. 4. Hypercalcemia, hyperphosphatemia, hypermagnesemia. 5. Transaminitis. 6. Questionable systemic inflammatory response syndrome. 7. Leukocytosis. 8. Tachycardia. 9. Transient hypotension. 10. Systemic inflammatory response syndrome with leukocytosis, tachycardia and granulocytosis. 11. Erythrocytosis. 12. Status post erythrocytosis. 13. Mild normocytic anemia. 14. Acute renal failure. 15. Hyperuricemia. 16. Transaminitis. 17. Proteinuria, ketonuria, microscopic hematuria and bacteriuria (resolved). 18. History of marijuana abuse with urine drug screen positive for cannabinoids. 19. Hepatic steatosis with fatty infiltration of the liver. 20. Severely symptomatic rhabdomyolysis with diffuse muscle cramping and nausea and vomiting. 21. Tachycardia. 22. Systemic inflammatory response syndrome with tachycardia and leukocytosis with granulocytosis. 23. Erythrocytosis with hemoconcentration secondary to dehydration. 24. Increased anion gap metabolic acidosis. 25. Hyperbilirubinemia and transaminitis. 26. Colonic fecal stasis retention and constipation. 27. Hepatic steatosis and fatty infiltration of the liver. 1. Acute severely symptomatic rhabdomyolysis with symptoms of nausea and vomiting. 2. Acute renal failure and acute kidney injury secondary to severe dehydration. 3. Hypercalcemia, hyperphosphatemia, hypermagnesemia. 4. Tachycardia. 5. Questionable systemic inflammatory response syndrome with tachycardia and leukocytosis with granulocytosis. 6. Erythrocytosis with hemoconcentration secondary to dehydration. 7. Increased anion gap metabolic acidosis. 8. Acute kidney injury, acute renal failure. 9. Hyperuricemia. 10. Hypercalcemia. 11. Hyperbilirubinemia. 12. Rhabdomyolysis. 13. Transient proteinuria, microscopic hematuria, ketonuria and bacteriuria. 14. Fecal retention, colonic fecal stasis and constipation. 15. Hepatic steatosis and fatty infiltration of the liver. 16. Sinus tachycardia. 1. Acute severe symptomatic rhabdomyolysis with diffuse muscular cramping and nausea. 2. Severe dehydration. 3. Tachycardia. 4. Questionable systemic inflammatory response syndrome with leukocytosis, granulocytosis, tachycardia. 5. Erythrocytosis, probably hemoconcentration 6. Acute renal failure, acute kidney injury. 7. Increased anion gap metabolic acidosis. 8. Hyperglycemia. 9. Hyperuricemia. 10. Hypermagnesemia. 11. Hyperphosphatemia. 12. Hypercalcemia. 13. Hyperbilirubinemia. 14. Transaminitis. 15. Proteinuria, ketonuria, hematuria and pyuria. 16. History of marijuana use with urine drug screen positive for cannabinoids. 17. Tachycardia. 18. Most likely systemic inflammatory response syndrome. 19. Colonic fecal retention with constipation. 20. Severely symptomatic acute rhabdomyolysis with elevated CPK and multiple electrolyte abnormalities with acute renal failure and acute kidney injury. 21. Sinus tachycardia. PLAN: At this time, patient is to be continued on IV fluid. The patient has been ordered serial labs. The patient will be given a normal saline bolus 1 liter today now. The patient has been ordered serial labs, serial CMP, LFT, magnesium, phosphorus, CPK, HIV, hepatitis panel, hemoglobin A1c pending, PTH is pending, repeat ____ order. CURRENT MEDICATIONS: The patient started on Dilaudid 0.5 mg IV q.4 p.r.n., heparin 5000 subQ q.8, cefepime 500 mg IV q.12, Protonix 40 mg daily, IV fluid increased to 150 mL an hour after 1 liter bolus, Valium 2 mg p.o. q.8 p.r.n. for cramping, Zofran 4 mg IV q.4 p.r.n. The patient's IV antibiotic will be considered to be stopped within the next 24- 48 hours if the blood and urine culture final report is negative. The patient has been advised out of bed to chair, ambulate. The patient's condition, diagnosis, further diagnostic therapeutic intervention, treatment plan, test results discussed and explained to the patient and the patient's mother who is present at the bedside. All questions and concerns answered. All of the above explained to the patient and the patient's mother in layman's language. The patient's nurse was present at the bedside during the conversation. The patient was advised that patient will be only discharged once medically cleared and stable. The patient has persisted to be discharged. The patient was strongly advised against signing out against medical advice. Dictated and electronically signed, not read. John Paultwyla Buenrostro MD cc: [phone] TT: 03/21/2017 15:46:44 Confirmation # [id number] Dictation # [id number] sn MTDD
[2017-03-22 07:30] LABS: ADD MANUAL DIFF? NO
[2017-03-22 07:36] LABS: BASO # 0.02 K/mm3 (0.0-2.0); BASO % 0.4 % (0.0-3.0); EOS # 0.1 (0.0-0.7); EOS % 2.3 % (1.5-5.0); GRAN # 3.33 (1.4-6.5); HEMATOCRIT 38.6 % (42.0-52.0); LYMPH # 1.7 (1.2-3.4); LYMPH % 30.1 % (22.0-35.0); MEAN CELL VOLUME 84.8 fL (80.0-105.0); MEAN CORPUSCULAR HGB CONC 34.2 g/dl (31.0-37.0); MEAN PLATELET VOLUME 10.5 fl (7.0-11.0); MONO # 0.4 (0.1-0.6); MONO % 7.2 % (1.0-6.0); PLATELET COUNT 205 10^3/uL (120.0-450.0); RED CELL DISTRIBUTION WIDTH 12.3 % (11.5-14.5); WHITE BLOOD COUNT 5.6 10^3/ul (4.5-11.0)
[2017-03-22 07:55] LABS: ALB/GLOB RATIO 1.4 (1.1-1.8); ALKALINE PHOSPHATASE 44 U/L (38-133); ALT/SGPT 55 U/L (7-56); AST/SGOT 100 U/L (15-59); BILIRUBIN,DIRECT 0.3 mg/dL (0.0-0.4); BILIRUBIN,TOTAL 1.6 mg/dL (0.2-1.3); BLOOD UREA NITROGEN 14 mg/dL (7-21); CALCIUM 8.6 mg/dL (8.4-10.5); CARBON DIOXIDE 29 mmol/L (21-33); CHLORIDE 104 mmol/L (98-107); GFR AFRICAN-AMERICAN > 60; GLUCOSE,RANDOM 96 mg/dL (70-110); MAGNESIUM 2.1 mg/dL (1.7-2.2); PHOSPHOROUS 3.1 mg/dL (2.5-4.5); POTASSIUM 4.3 mmol/L (3.6-5.0); SODIUM 139 mmol/L (132-148); TOTAL PROTEIN 6.8 g/dL (5.8-8.3); URIC ACID 5.4 mg/dL (3.5-8.5)
[2017-03-22 08:06] LABS: TROPONIN I < 0.01 ng/mL
[2017-03-22 08:41] VITALS: BP 98/45; PULSE 69; RESP 18; TEMP 97.9; O2SAT 95
--- NOTE | 2017-03-22 12:12 | CP.PCM.PN ---
Subjective - Date & Time of Evaluation Date of Evaluation: 03/22/17 Time of Evaluation: 11:25 - Subjective Subjective: Patient seen because he has decided to leave AMA for personal reasons. He is alert,oriented x 3 ,ambulatory. His Vital signs are stable. He states he does not want any further examinations,treatment or tests at this facility. Patient was told of risks of leaving AMA ,namely ,his renal function could deteriorate leading to renal failure, need for dialysis,even . Patient states ,he understands,still wishes to leave AMA.He states he will seek medical care at a facility near his home. Time spent with pt:25 mins Objective - Vital Signs/Intake and Output Vital Signs (last 24 hours): Temp Pulse Resp BP Pulse Ox 97.9 F 69 18 98/45 L 95 03/22/17 08:41 03/22/17 08:41 03/22/17 08:41 03/22/17 08:41 03/22/17 08:41 Intake and Output: 03/22/17 03/22/17 06:59 18:59 Intake Total 360 Balance 360 - Medications Medications: Current Medications Diazepam (Valium) 2 mg PO Q8H PRN; Protocol PRN Reason: muscel cramps Last Admin: 03/21/17 08:41 Dose: 2 mg Hydromorphone HCl (Dilaudid) 0.5 mg IVP Q4H PRN PRN Reason: Pain, moderate (4-7) Sodium Chloride (Sodium Chloride 0.9%) 2,000 mls @ 150 mls/hr IV .[id number] [facility] Last Admin: 03/21/17 14:00 Dose: 150 mls/hr Ondansetron HCl (Zofran Inj) 4 mg IVP Q4H PRN PRN Reason: Nausea/Vomiting Pantoprazole Sodium (Protonix Ec Tab) 40 mg PO 0630 [facility] Last Admin: 03/21/17 06:28 Dose: 40 mg - Labs Labs: 03/22/17 07:00 03/22/17 07:00 PT 11.4 Seconds (9.9-11.8) 03/19/17 22:30 INR 1.06 (0.93-1.08) 03/19/17 22:30 APTT 26.4 Seconds (23.7-30.8) 03/19/17 22:30
--- NOTE | 2017-03-22 12:48 | DS ---
The patient's mother forced the patient to sign out against medical advice on . The patient was moved from telemetry to room 373, bed 1. VITAL SIGNS: In the last 24 hours: T-max 98.3, heart rate 69, 60, 56, 72, 60, 55, respiration 19, O2 sat 95%-99%. Blood pressure 98/45, 140/88, 121/69, 110/ 50, 110/52. Overnight nurse's notes were reviewed. The patient was transferred from telemetry to third floor, 373. The patient was found by the nurses this morning complaining of 2/10 bilateral thigh pain. The patient's mother came to visit the patient today and told the nurses and the case management that she wants her son to sign against medical advice and go to the hospital closer to their home. I spoke to the case management, , and also spoke to the patient's mother as requested by the case sealer. I explained to the patient' s mother again, which I have explained to the patient and the mother yesterday on the telemetry floor, and I have updated the patient's mother about rising CPK and continuation of inpatient treatment with aggressive IV fluid hydration, monitoring of patient's labs and clinical condition and diagnostic data, but patient's mother is unable to understand the treatment plan and unable to understand what I am trying to explain her and despite my multiple lengthy explanation, I have been unable to reason with the patient's mother and told ___ __ to sign out against medical advice. At that point, the house physician was called by the nurses. The patient signed the AMA form understanding the risk, consequences and complications of signing out medical advised and understanding the risk, complication and consequences of his medical condition and he acknowledged and understood and he signed the AMA form. DIAGNOSTIC DATA: From today, 03/22, WBC 5.6, hemoglobin and hematocrit 13.2 and 38.6, platelets 205. Sodium 139, potassium 4.3, chloride 104, CO2 29, anion gap 10, BUN 14, creatinine 0.8, GFR greater than 60, glucose 96, calcium 8.6. Uric acid 5.4, phosphorus 3.1, magnesium 2.1, total bili 1.6, AST is 100. CPK has gone up to 2966 from 1480. Troponin is negative. LFTs are negative. Hepatitis A, B, C serologies are negative. Blood cultures, urine cultures no growth. FINAL IMPRESSION AND PLAN: 1. Acute severely symptomatic slow resolving versus refractory rhabdomyolysis with rising and elevated CPK. 2. Acute renal failure, acute kidney injury (resolved). 3. Severe dehydration. 4. Hypovolemia and hypotension. 5. Hypercalcemia, hyperphosphatemia, hypermagnesemia. 6. Transaminitis. 7. Possible systemic inflammatory response syndrome with tachycardia, leukocytosis, granulocytosis. 8. Erythrocytosis (resolved). 9. Mild normocytic anemia. 10. Hyperuricemia. 11. Transaminitis. 12. Proteinuria, ketonuria, microscopic hematuria and bacteriuria. 13. History of marijuana abuse with urine drug screen positive for cannabinoids. 14. Hepatic steatosis with fatty infiltration of the liver. 15. Severely symptomatic slow resolving versus refractory rhabdomyolysis with diffuse muscle cramping and nausea and vomiting. 16. Tachycardia. 17. Erythrocytosis and hemoconcentration, secondary to dehydration. 18. Increased anion gap metabolic acidosis. 19. Hyperbilirubinemia with transaminitis. 20. Colonic fecal stasis, retention and constipation. 21. Hypotension. 22. Hypovolemia. 23. Mild normocytic anemia. 24. Transaminitis. 25. Hyperbilirubinemia. 1. Slow resolving versus questionable refractory acute severe symptomatic rhabdomyolysis. 2. Acute renal failure, acute kidney injury. 3. Severe dehydration. 4. Hypercalcemia, hyperphosphatemia, hypermagnesemia. 5. Transaminitis. 6. Questionable systemic inflammatory response syndrome. 7. Leukocytosis. 8. Tachycardia. 9. Transient hypotension. 10. Systemic inflammatory response syndrome with leukocytosis, tachycardia and granulocytosis. 11. Erythrocytosis. 12. Status post erythrocytosis. 13. Mild normocytic anemia. 14. Acute renal failure. 15. Hyperuricemia. 16. Transaminitis. 17. Proteinuria, ketonuria, microscopic hematuria and bacteriuria (resolved). 18. History of marijuana abuse with urine drug screen positive for cannabinoids. 19. Hepatic steatosis with fatty infiltration of the liver. 20. Severely symptomatic rhabdomyolysis with diffuse muscle cramping and nausea and vomiting. 21. Tachycardia. 22. Systemic inflammatory response syndrome with tachycardia and leukocytosis with granulocytosis. 23. Erythrocytosis with hemoconcentration secondary to dehydration. 24. Increased anion gap metabolic acidosis. 25. Hyperbilirubinemia and transaminitis. 26. Colonic fecal stasis retention and constipation. 27. Hepatic steatosis and fatty infiltration of the liver. 1. Acute severely symptomatic rhabdomyolysis with symptoms of nausea and vomiting. 2. Acute renal failure and acute kidney injury secondary to severe dehydration. 3. Hypercalcemia, hyperphosphatemia, hypermagnesemia. 4. Tachycardia. 5. Questionable systemic inflammatory response syndrome with tachycardia and leukocytosis with granulocytosis. 6. Erythrocytosis with hemoconcentration secondary to dehydration. 7. Increased anion gap metabolic acidosis. 8. Acute kidney injury, acute renal failure. 9. Hyperuricemia. 10. Hypercalcemia. 11. Hyperbilirubinemia. 12. Rhabdomyolysis. 13. Transient proteinuria, microscopic hematuria, ketonuria and bacteriuria. 14. Fecal retention, colonic fecal stasis and constipation. 15. Hepatic steatosis and fatty infiltration of the liver. 16. Sinus tachycardia. 1. Acute severe symptomatic rhabdomyolysis with diffuse muscular cramping and nausea. 2. Severe dehydration. 3. Tachycardia. 4. Questionable systemic inflammatory response syndrome with leukocytosis, granulocytosis, tachycardia. 5. Erythrocytosis, probably hemoconcentration 6. Acute renal failure, acute kidney injury. 7. Increased anion gap metabolic acidosis. 8. Hyperglycemia. 9. Hyperuricemia. 10. Hypermagnesemia. 11. Hyperphosphatemia. 12. Hypercalcemia. 13. Hyperbilirubinemia. 14. Transaminitis. 15. Proteinuria, ketonuria, hematuria and pyuria. 16. History of marijuana use with urine drug screen positive for cannabinoids. 17. Tachycardia. 18. Most likely systemic inflammatory response syndrome. 19. Colonic fecal retention with constipation. 20. Severely symptomatic acute rhabdomyolysis with elevated CPK and multiple electrolyte abnormalities with acute renal failure and acute kidney injury. 21. Sinus tachycardia. At present, patient has been ordered serial labs, but patient does not wish to stay in the hospital and patient signed out against medical advice. The patient 's pending labs are HIV, myoglobin, PTH. CURRENT MEDICATIONS: As of today, the patient signed out against medical advice : Dilaudid 0.5 mg IV q. 4 p.r.n., Protonix 40 mg daily, IV fluid 0.9 normal saline at 150 mL an hour, Valium 2 mg p.o. q. 8 hours p.r.n., Zofran 4 mg IV q. 4, regular diet. Time spent in the entire process, more than 45 minutes. Dictated and electronically signed, not read. John Paul Buenrostro MD cc: [id number] TT: 03/22/2017 12:46:51 en [email or web address]
== END 2017-03-22 13:11 | disposition left against medical advice (07) | DRG 682 ==
LOC: ED 16:44 → ERH 18:58 → 2RNO 21:32 → 3RSO 03-21 21:32
PROVIDERS: ADMIT Internal Medicine; ATTEND Internal Medicine
DX: N17.9 Acute kidney failure, unspecified (principal); R65.11 Systemic inflammatory response syndrome (SIRS) of non-infectious origin with acute organ dysfunction; E87.2 Acidosis; M62.82 Rhabdomyolysis; E86.0 Dehydration; E83.41 Hypermagnesemia; E83.39 Other disorders of phosphorus metabolism; E83.52 Hypercalcemia; E86.1 Hypovolemia; D64.9 Anemia, unspecified; R31.29 Other microscopic hematuria; F12.10 Cannabis abuse, uncomplicated; K59.00 Constipation, unspecified; K76.0 Fatty (change of) liver, not elsewhere classified